=== PATIENT | female | born 1980 | race Caucasian/White ===

== ENCOUNTER 2018-05-21 09:16 | Emergency (ER) | payer OTHER ==
[~2018-05-21] VITALS: Ht 162.6 cm; Wt 105.0 kg
[~2018-05-21 09:16] MED LIST: FLOMAX0.4 M1 PO; LEVOTHYROXIN75 MCG PO; LORTAB 10-325 M1 TAB PO; LORTAB 5/3255 MG PO; NO HOME MEDS; ZOFRAN ODT4 MG PO; ZPAK PO
[2018-05-21] MEDS ORDERED: CLEOCIN150 MG PO (09:40)
[2018-05-21] MEDS ORDERED: MEDDOSEPAK PO (09:40)
[2018-05-21 09:41] VITALS: BP 126/81
== END 2018-05-21 09:42 | disposition home or self-care (01) ==
LOC: ED 09:16
DX: R59.0 Localized enlarged lymph nodes (principal); L30.9 Dermatitis, unspecified; E07.9 Disorder of thyroid, unspecified

== ENCOUNTER 2018-05-25 18:06 | Emergency (ER) | payer OTHER ==
[~2018-05-25] VITALS: Ht 162.6 cm; Wt 80.0 kg
[~2018-05-25 18:06] MED LIST changes: +CLEOCIN150 MG PO; +MEDDOSEPAK PO
[2018-05-25] MEDS ORDERED: TRAMADOL HCL50 MG PO (18:31)
[2018-05-25 19:11] VITALS: BP 122/88
== END 2018-05-25 19:10 | disposition home or self-care (01) ==
LOC: ED 18:06
DX: K11.8 Other diseases of salivary glands (principal); E07.9 Disorder of thyroid, unspecified; R22.0 Localized swelling, mass and lump, head